=== PATIENT | female | born 1950 | race African-American/Black ===

== ENCOUNTER → 2018-12-26 | Outpatient (CLI) | payer BC, MEDICARE ==
[~2018-12-26] MED LIST: AMLO5TAB4 PO; FAMO40TA70 PO; OMEPRAZOLE PO
[2018-12-26 09:43] LABS: HEMATOCRIT. 37.1 % (36.0-48.0); HEMOGLOBIN. 11.7 g/dL (12.0-16.0); MEAN CORPUSCULAR HEMOGLOBIN 22.7 pg (28.0-32.0); MEAN CORPUSCULAR VOLUME 71.8 fL (81.0-99.0); MEAN PLATELET VOLUME 8.8 fl (7.4-10.4); PLATELET 211 x1000/uL (130-400); RED BLOOD CELL COUNT 5.16 mill/uL (4.2-5.4); RED CELL DISTRIBUTION WIDTH 14.4 % (11.6-14.6)
[2018-12-26 09:48] LABS: CHLORIDE 106 mEq/L (98-107)
[2018-12-26 09:56] LABS: LDL CHOLESTEROL 123 mg/dL (5-100)
[2018-12-26 09:57] LABS: HDL CHOLESTEROL 61 mg/dL (40-59)
[2018-12-27 14:10] LABS: PLATELET ESTIMATE NORMAL
== END | disposition home or self-care (01) ==
LOC: LAB 09:24
PROVIDERS: ATTEND Internal Medicine Critical Care Medicine
DX: R05 Cough (principal); R50.9 Fever, unspecified
CPT/HCPCS: 36415; 80061; 80076; 82248; 86140

== ENCOUNTER → 2024-06-08 | Outpatient (CLI) | payer MEDICARE | END | disposition home or self-care (01) | LOC: LAB 13:57 | PROVIDERS: ATTEND Internal Medicine Critical Care Medicine | DX: R06.02 Shortness of breath (principal) | CPT/HCPCS: 71046 ==